=== PATIENT | male | born 2000 | race Caucasian/White ===

== ENCOUNTER 2020-06-07 18:35 | Emergency (ER) | payer OTHER ==
[~2020-06-07] VITALS: Ht 188 cm; Wt 87.9 kg
[2020-06-07] MEDS ORDERED: ACETAMINOPHEN 325 MG TAB PO ONE (21:00)
[2020-06-07 21:28] LABS: HEMATOCRIT 39.6 % (42.0-52.0); HEMOGLOBIN 13.4 g/dl (13.5-17.5); MEAN CORPUSCULAR HEMOGLOBIN 27.7 pg (27.0-33.0); MEAN CORPUSCULAR HGB CONC 33.8 g/dl (32.0-36.5); MEAN CORPUSCULAR VOLUME 81.8 fl (80.0-96.0); PLATELET COUNT, AUTOMATED 206 10^3/uL (150-450); RED BLOOD COUNT 4.84 10^6/uL (4.30-6.10); WHITE BLOOD COUNT 16.2 10^3/uL (4.0-10.0)
[2020-06-07 21:39] LABS: INR 1.14; PROTHROMBIN TIME 14.9 SECONDS (12.5-14.3)
[2020-06-07 21:55] LABS: ATYPICAL LYMPH 42 % (0-5); LYMPHOCYTES 21 % (16-44); MONOCYTES 5 % (0-5); NEUTROPHILS 26 % (28-66); PLATELET ESTIMATE NORMAL (NORMAL); POLYCHROMASIA 1+
[2020-06-07 21:56] LABS: ANISOCYTOSIS 1+; POIKILOCYTOSIS 1+
[2020-06-07 21:59] LABS: ALT/SGPT 49 U/L (12-78); AMYLASE 30 U/L (25-115); BILIRUBIN,DIRECT 0.2 MG/DL (0.0-0.2); BILIRUBIN,TOTAL 0.9 MG/DL (0.2-1.0); BLOOD UREA NITROGEN 7 MG/DL (7-18); CALCIUM LEVEL 8.6 MG/DL (8.5-10.1); CARBON DIOXIDE LEVEL 31 MEQ/L (21-32); CHLORIDE LEVEL 105 MEQ/L (98-107); CREATININE FOR GFR 1.07 MG/DL (0.70-1.30); GLUCOSE, FASTING 96 MG/DL (70-100); LIPASE 125 U/L (73-393); POTASSIUM SERUM 3.7 MEQ/L (3.5-5.1); SODIUM LEVEL 139 MEQ/L (136-145)
[2020-06-07 22:00] LABS: MONO SCRN POSITIVE (NEGATIVE)
[2020-06-07 22:32] VITALS: BP 124/71
== END 2020-06-07 22:34 | disposition home or self-care (01) ==
LOC: M ED 18:35
DX: B27.90 Infectious mononucleosis, unspecified without complication (principal)